=== PATIENT | female | born 1955 | race Caucasian/White ===

== ENCOUNTER 2021-10-15 12:49 | Outpatient (CLI) | payer MEDICARE, BC, SELFPAY ==
--- NOTE | 2021-10-15 13:00 | MR_ITS ---
[address] [address] Phone:?[phone] Fax:?[phone] Referring Physician Information: Darron San M.D. [address] [facility] [address] Phone:?[phone] Fax:?[phone] Patient:Markus Reid D.O.B:?1955 Sex:?Female Phone:?[phone] [facility] MRN:?[id number] Exam Date:?10/15/2021 ? EXAM: MRI of the LEFT SHOULDER, without contrast CLINICAL INFORMATION: Female, 66 years old, with left shoulder pain. INDICATION: Evaluate for rotator cuff tear. PRIOR SURGERY: Reported history of shoulder surgery. PLAIN FILMS: None available. COMPARISONS: No prior MRIs available. TECHNICAL INFORMATION: Using a 1.5T MR scanner and a localizing surface coil: coronal obliques: PD, T2, STIR sagittal obliques: PD, T2 axials: PD, T2 SEDATION: None CONTRAST: None FINDINGS: Bones: Proximal humerus: A surgical anchor in the greater tuberosity reflects prior rotator cuff repair, discussed below. No stress/occult fracture otherwise abnormal marrow signal/pathology. No humeral Hill-Sachs or reverse Hill-Sachs lesion/impaction or contusion. Glenoid: No fracture or marrow edema/pathology. No osseous Bankart lesion. Rotator cuff and muscles/tendons: Supraspinatus: Status post repair. Moderate-marked attenuation and irregularity of the supraspinatus tendon, with the majority of the tendon appearing to be retracted to the mid humeral head, but without a well-defined full-thickness tendon tear (sagittal T2 series 8 image 9 and coronal T2 series 6 image 13). No muscle atrophy. Infraspinatus: Moderate infraspinatus tendinopathy, with tendon fraying, but without more well-defined tendon tear. No muscle atrophy. Teres minor: No tendinopathy, tear or atrophy. Subscapularis: Marked subscapularis tendinopathy with interstitial fraying, but without discrete tendon tear. No muscle atrophy. Deltoid: No strain or atrophy. Coracoacromial arch: Acromion morphology: Status post anterior acromioplasty for subacromial decompression, good result. No os acromiale. Acromiohumeral space: The acromiohumeral space is decompressed. Coracohumeral space: The coracohumeral space is within normal limits. Acromioclavicular joint: Joint: Status post AC joint resection for subacromial decompression, with good result. Ligaments: Coracoclavicular ligaments are intact. Bursae: Subacromial-subdeltoid: Mild subacromial-subdeltoid bursitis. Subcoracoid: No convincing subcoracoid bursal thickening/bursitis. Biceps tendon: The long head of the biceps tendon is present within the bicipital groove. Moderate tendinopathy and fraying of the intra-articular biceps long head tendon, without discrete split/tear (sagittal PD series 7 images 11-15). Glenohumeral joint: Effusion/cyst: Small glenohumeral joint effusion. Articular cartilage: Humeral head: Mild to moderate generalized thinning of the articular cartilage of the humeral head, with mild inferomedial marginal osteophytosis. Glenoid: Mild generalized thinning of the glenoid articular cartilage, with mild posterior greater than anterior marginal osteophytosis. Loose bodies: No discrete intra-articular body within the joint. Labrum:?Circumferential degeneration and tearing of the labrum, which is of doubtful clinical significance. Inferior glenohumeral ligament/axillary pouch:?Intact. The axillary pouch is normal in thickness and signal. No evidence of adhesive capsulitis or capsular injury. IMPRESSION: 1. Status post supraspinatus tendon repair. The distal tendon fibers are moderately-markedly attenuated, with the majority of the tendon appearing to be retracted to the level of the mid humeral head, but without a well-defined full- thickness tendon tear. 2. Moderate infraspinatus and marked subscapularis tendinopathy, without tear. 3. Status post anterior acromioplasty and AC joint resection for subacromial decompression, with good result. However, there is mild subacromial-subdeltoid bursal fluid/bursitis. 4. Circumferential degeneration and tearing of the labrum, which is of doubtful clinical significance. 5. Moderate tendinopathy and fraying of the intra-articular biceps long head tendon, without displacement or split/tear. 6. Mild osteoarthritis of the glenohumeral joint with a small joint effusion and synovitis. BC Electronically signed on 10/15/2021 9:42:00 PM by Salvador Posada M.D.
== END 2021-10-15 12:50 | disposition home or self-care (01) ==
LOC: MRI 12:54
PROVIDERS: PCP Family Medicine; Visit Provider Orthopaedic Surgery Sports Medicine
DX: M25.512 Pain in left shoulder (principal); M75.101 Unspecified rotator cuff tear or rupture of right shoulder, not specified as traumatic; M75.52 Bursitis of left shoulder; M19.012 Primary osteoarthritis, left shoulder; M25.412 Effusion, left shoulder
CPT/HCPCS: 73221

== ENCOUNTER 2021-11-27 07:30 | Outpatient (RCR) | payer MEDICARE, BC, SELFPAY ==
--- NOTE | 2021-10-27 09:12 | PT.OPEX ---
[facility] Eval PT [facility] Outpatient Eval Start: 10/23/21 15:18 Freq: Status: Active Protocol: Document 10/23/21 15:19 ACW (Rec: 10/23/21 16:20 ACW [id number]) E-signed By Cassie Castillo, PT, ATC Physical Therapy Outpatient Evaluation Insurance Information Insurance Name Medicare B,Blue [employer]/Blue Shield Medical Diagnosis tear of right biceps muscle right rotator cuff tendonitis rotator cuff tear - right string of muscle, fascia and tendon of other parts of her biceps Treating Diagnosis decreased right shoulder mobility with pain very stiff thoracic spine segmental mobility forward head, rounded shoulder posture super tight upper trap, neck and upper back muscles Referring MD San Subjective Pain Comments 0-910 Date of Last Physician Visit 10/20/21 Current Work Status Retired Preferred Name Rebecca Precautions Weight Bearing Status Full Weight Bearing Therapy Limitations/Systems Review Not Limited Objective Range of Motion left shoulder AROM: xurt=459, ueprncyup=907 , she can reach the back of her head and L3 right shoulder AROM: bsqg=640 with pain, abduction = 108 with pain, she can reach the back of her head and her right hip cervicle ROM is limited in sidebending and rotation Palpation pt is rock hard in her upper traps, periscap muscles. She has a soft tissue thickening at T6 and T7 She is tender in her supraspinatus, along her right bicep tendon, her infraspinatus , the insertion of her subscapularis and at her lateral right elbow. Posture forward head, rounded shoulder Assessment Assessment/Impression pt is an active 66 yo woman who has had PT many times because of LBP, bilateral THR and bilateral TSR. She is aware and knowledgable about her body. She started having pain in her right shoulder about 3 wks ago - insidious onset. She states it hurts when cleaning the garage, using a screwdriver, when biking , when driving the lawnmower, when quilting and having to push down, and with the signals she needs to use when training /signaling her dogs. Her right shoulder AROM is limited, but so is her left (just not quite as much). I had to gently perform MMTs due to her tears and fraying but what I can say is there wasn't pain with the resistance. She has very stiff thoracic spine segmental mobility. She chronically is in forward head, shoulder protracted posture. She is going to a spine doctor in 2 wks due to this arm pain as well . pt will benefit form skilled PT for MT , TE, TA Plan of Care Rehabilitation Potential Good Physical Therapy Goals 1. pt will be competent and compliant with home ex and icing 2. in 4 visits pt will be able to signal her dogs with 2 /10 max right shoulder pain 80 % of the time they are training 3. in 8 visits pt will be able to lie flat without needing to prop her shoulder and have 1/10 max right shoulder pain LTG: continue her ADLs with 2 /10 max pain and avoid surgery Coordination/Communication With Referral Source Treatment Plan/Direct Interventions Manual Therapy,Therapeutic Activities,Therapeutic Exercises Frequency/Duration 1 time per week as needed Patient Will Be Discharged From Therapy Independently Progressing Evaluation Billing Complexity High Certification Information Initial Certification Date 10/23/21 Ending Certification Date 01/20/22 Provider Signature Shows Agreement With POC & Medical Necessity Physician Comment/Change Comment or Changes Physician NPI Number #
== END 2022-01-26 15:59 | disposition home or self-care (01) ==
PROVIDERS: PCP Family Medicine; Visit Provider Orthopaedic Surgery Sports Medicine
DX: S46.211D Strain of muscle, fascia and tendon of other parts of biceps, right arm, subsequent encounter (principal); Z51.89 Encounter for other specified aftercare
CPT/HCPCS: 97110; 97140; 97163; 97535

== ENCOUNTER 2022-01-06 11:53 | Outpatient (CLI) | payer MEDICARE, BC, SELFPAY ==
[2022-01-06 12:01] LABS: Cholesterol* 201 mg/dL (90-199)
[2022-01-06 12:02] LABS: HDL Cholesterol* 44 mg/dL (>=50); LDL Cholesterol Calculated 111 mg/dL (<100); Triglycerides* 232 mg/dL (40-149)
[2022-01-06 13:31] LABS: Vitamin D 25 Hydroxy* 35 ng/mL (30-80)
== END 2022-01-06 11:54 | disposition home or self-care (01) ==
PROVIDERS: PCP Family Medicine; Visit Provider Family Medicine
DX: E78.5 Hyperlipidemia, unspecified (principal); E55.9 Vitamin D deficiency, unspecified
CPT/HCPCS: 80061; 82306; 82652

== ENCOUNTER 2022-03-19 08:59 | Outpatient (CLI) | payer MEDICARE, BC, SELFPAY ==
--- NOTE | 2022-03-19 09:15 | CRLHL7_ITS ---
For Patients: As a result of the Century Cures Act, medical imaging exams and procedure reports are released immediately into your electronic medical record. You may view this report before your referring provider. If you have questions, please contact your health care provider. BILATERAL SCREENING MAMMOGRAM WITH COMPUTER-AIDED DETECTION AND TOMOSYNTHESIS TECHNIQUE: CC and MLO views were obtained. These mammographic images have been obtained using full-field digital technique. These mammographic images were interpreted with the benefit of computer-aided detection. Breast Tomosynthesis was used in this interpretation. COMPARISON FILM: 01/27/21, 11/28/19, 05/30/18. FINDINGS: The breasts are heterogeneously dense, which may obscure small masses IMPRESSION: There is no radiographic evidence for malignancy. ASSESSMENT: BI-RADS Category 2: Benign RECOMMENDATION: Routine screening mammogram in 1 year. A lay language report of this examination will be provided to the patient. Bj León M.D. Diagnostic Radiologist [email or web address] LE[place]/valencia / be/Dictated by: Bj León MD @ 03/19/2022 10:46:00 AM (Electronically Signed)
== END 2022-03-19 09:00 | disposition home or self-care (01) ==
LOC: MAMMO 09:01
PROVIDERS: PCP Family Medicine; Visit Provider Family Medicine
DX: Z12.31 Encounter for screening mammogram for malignant neoplasm of breast (principal); R92.2 Inconclusive mammogram
CPT/HCPCS: 77063; 77067

== ENCOUNTER 2022-04-15 12:51 | Outpatient (CLI) | payer MEDICARE, BC, SELFPAY ==
--- NOTE | 2022-04-15 13:00 | CRLHL7_ITS ---
For Patients: As a result of the Century Cures Act, medical imaging exams and procedure reports are released immediately into your electronic medical record. You may view this report before your referring provider. If you have questions, please contact your health care provider. DXA BONE MINERAL DENSITY STUDY Current height (in): 63.5. Weight (lb): 217.0. Menopause age: 51. Ethnicity: White. 1. Have you had a previous hip or vertebral fracture? No. 2. Have you had any fractures during your adult life which did not result from significant trauma (e.g., auto accident)? No. 3. Did either of your parents have a hip fracture? Yes. 4. Do you smoke? No. 5. Have you ever taken Glucocorticoids? No. 6. Do you have rheumatoid arthritis? No. 7. Do you have secondary osteoporosis? No. 8. Do you drink 3 or more alcoholic drinks per day? No. 9. Are you being treated for osteoporosis? No. 10. Have you ever taken any of the following medications: Actonel, Evista, Fosamax, Miacalcin, Reclast, Boniva, Forteo, HRT (i.e. estrogen/hormone therapy), Protelos, Prolia, Vitamin D, Calcium, other ??? please specify. ANSWER: Yes, vitamin D, calcium. 11. Do you have any of the following medical conditions: Anorexia or bulimia, asthma or emphysema, end stage renal disease, hyperparathyroidism, any seizure disorders, cancer, inflammatory bowel diseases, hysterectomy, other ??? please specify. ANSWER: No. 12. What was your maximum height (inches)? 65. 13. Do you perform weight bearing exercise regularly? Yes. . 14. Do you regularly consume dairy products? Yes. 15. Do you drink caffeinated beverages? No. 16. At what age did your period start? 14. 17. Are you premenopausal? No. 18. How many full term pregnancies have you had? 0. 19. Have you ever missed your period for more than 6 months in a row (not including or menopause)? No. TECHNIQUE: Bone mineral density study was performed using the [employer]. FINDINGS: The results of the study expressed as bone mineral density (BMD) are as follows: Lumbar spine L1 to L4: BMD: 1.424 g/cm2. T-score: 3.4. Z-score: 5.2. Neck Left: BMD: 0.855 g/cm2. T-score: 0.1. Z-score: 1.6. Right: BMD: 0.864 g/cm2. T-score: 0.1. Z-score: 1.7. Total Left: BMD: 1.030 g/cm2. T-score: 0.7. Z-score: 2.0. Right: BMD: 1.029 g/cm2. T-score: 0.7. Z-score: 2.0. IMPRESSION: Normal bone density. Bj León M.D. Diagnostic Radiologist [email or web address] LE[place]/valencia / be/Dictated by: Bj León MD @ 04/15/2022 2:56:00 PM (Electronically Signed)
== END 2022-04-15 12:52 | disposition home or self-care (01) ==
LOC: RAD 12:52
PROVIDERS: PCP Family Medicine; Visit Provider Family Medicine
DX: Z78.0 Asymptomatic menopausal state (principal)
CPT/HCPCS: 77080